=== PATIENT | female | born 1970 | race Caucasian/White ===

== ENCOUNTER → 2018-01-26 | Outpatient (CLI) | payer OTHER | END | disposition home or self-care (01) | LOC: RAH 15:20 | PROVIDERS: ATTEND Obstetrics & Gynecology | DX: Z12.31 Encounter for screening mammogram for malignant neoplasm of breast (principal) | CPT/HCPCS: 77067 ==

== ENCOUNTER 2023-12-02 11:42 | Emergency (ER) | payer OTHER ==
[~2023-12-02] VITALS: Ht 167.6 cm; Wt 81.6 kg
[2023-12-02 12:31] LABS: BASOPHILS # (AUTO) 0.05 K/uL (0.00-0.20); BASOPHILS % (AUTO) 0.7 % (0.0-5.0); EOSINOPHILS # (AUTO) 0.07 K/uL (0.00-0.70); EOSINOPHILS % (AUTO) 0.9 % (0.0-8.0); IMMATURE GRANULOCYTE ABSOLUTE 0.01 K/uL (0-1); LYMPHOCYTES # (AUTO) 2.5 K/uL (1.0-4.8); LYMPHOCYTES % (AUTO) 33.2 % (21.0-51.0); MEAN CORPUSCULAR HEMOGLOBIN 30.8 pg (27.0-33.0); MEAN CORPUSCULAR HGB CONC 34.8 g/dL (32.0-36.0); MEAN CORPUSCULAR VOLUME 88.6 fL (79-99); MONOCYTES # (AUTO) 0.7 K/uL (0.1-1.0); NEUTROPHILS # (AUTO) 4.1 K/uL (1.8-7.7); NEUTROPHILS % (AUTO) 56.1 % (40.0-77.0); PLATELET COUNT (AUTO) 305 K/uL (130-400); RED BLOOD CELL COUNT(AUTO) 4.74 MIL/uL (4.00-5.50); RED CELL DISTRIBUTION WIDTH 12.4 % (11.0-15.5); WHITE BLOOD COUNT (AUTO) 7.4 K/uL (4.8-10.8)
[2023-12-02 12:45] LABS: APPEARANCE,URINE CLEAR (CLEAR); BILIRUBIN,URINE NEGATIVE (NEGATIVE); COLOR,URINE YELLOW (YELLOW); GLUCOSE, URINE (UA) NEGATIVE (NEGATIVE); KETONES,URINE 40 mg/dL (NEGATIVE); LEUKOCYTE ESTERASE ,URINE NEGATIVE Leu/uL (NEGATIVE); NITRATE,URINE NEGATIVE (NEGATIVE); OCCULT BLOOD,URINE NEGATIVE (NEGATIVE); PH,URINE 6.5 (5.0-8.0); PROTEIN,URINE NEGATIVE (NEGATIVE); UROBILINOGEN,URINE 0.2 mg/dL (0.2-1.0)
[2023-12-02 12:47] LABS: ALBUMIN 4.1 g/dL (3.5-5.0); BILIRUBIN,TOTAL 0.5 mg/dL (0.2-1.0); CREATININE 0.7 mg/dL (0.5-1.0); POTASSIUM 3.8 mmol/L (3.5-5.1); TOTAL PROTEIN, SERUM 8.5 g/dL (6.0-8.3)
[2023-12-02 12:48] LABS: ADD UA MICROSCOPIC YES
[2023-12-02 12:55] LABS: BACTERIA,URINE RARE /HPF (None Seen); MUCUS,URINE RARE LPF (None Seen); RBC,URINE 0-1 /HPF (0-1); SQUAMOUS EPITHELIAL CELL,UR FEW /HPF (0-2); WBC,URINE 0-1 /HPF (0-1)
[2023-12-02] MEDS: ONDANSETRON 4MG INJ IVP ONE (13:24)
[2023-12-02] MEDS: KETOROLAC 30MG VIAL (30MG/ML) IVP ONE (13:24)
[2023-12-02 14:11] VITALS: BP 116/62; PULSE 74; RESP 18; O2SAT 95
== END 2023-12-02 15:09 | disposition home or self-care (01) ==
LOC: EDH 11:42
DX: R10.31 Right lower quadrant pain (principal); J45.909 Unspecified asthma, uncomplicated; Z87.442 Personal history of urinary calculi; Z91.041 Radiographic dye allergy status; Z88.2 Allergy status to sulfonamides; Z91.030 Bee allergy status; Z90.711 Acquired absence of uterus with remaining cervical stump; Z90.89 Acquired absence of other organs
CPT/HCPCS: 99285; 74176; 96374; 96375; 80053; 84703; 83690; 85025; 86140; 81001; 36415; J2405; J1885

== ENCOUNTER 2024-07-06 08:09 | Emergency (ER) | payer OTHER ==
[~2024-07-06] VITALS: Ht 167.6 cm; Wt 77.6 kg
--- NOTE | 2024-07-06 08:54 | ERN ---
General Chief Complaint: Wrist Pain/Injury Stated Complaint: RT WRIST PAIN, S/P FALL Time Seen by MD: 08:11 Source: patient History of Present Illness Initial Comments Patient is a 53 y/o femalew here for evaluation of wrist pain. Patient states she fell down early in the morning and is now having right wrist pain. She states her pain is more pronounced on flexion and extension. Allergies: Coded Allergies: Iodinated Contrast Media (Unverified Allergy, Unknown, 12/02/23) Sulfa (Sulfonamide Antibiotics) (Unverified Allergy, Unknown, 12/02/23) bee venom protein (honey bee) (Unverified Allergy, Unknown, 12/02/23) Past Medical History Past Medical History: Asthma, Kidney Stone Past Surgical History: Hysterectomy, Tonsillectomy ROS Dictation CONSTITUTIONAL: No chills, no fever, no weakness, no diaphoresis, no malaise. HEAD/FACE: No signs of trauma. EENT: No eye pain, no blurred vision, no tearing, no double vision, no ear pain, no ear discharge, no nose pain, no nasal congestion, no throat pain, no throat swelling, no mouth pain. RESPIRATORY: No cough, no orthopnea, no SOB, no stridor, no wheezing. CARDIOVASCULAR: No chest pain, no edema, no palpitations, no syncope. GASTROINTESTINAL/ABDOMINAL: No abdominal pain, no constipation, no diarrhea, no nausea, no vomiting. GENITOURINARY: No abnormal discharge, no dysuria, no frequent urination, no hematuria. No complaints of pain in the genitals. MUSCULOSKELETAL: No back pain, no gout, joint pain, joint swelling, muscle pain, no muscle stiffness, no neck pain. INTEGUMENTARY: No change in color, no change in hair/nails, no dryness, no lesion, no lumps, no rash. NEUROLOGICAL/PSYCH: No anxiety, not depressed, no emotional problem, no headache, no numbness, no pre-existing deficit, no history of seizures, no ella mors, no weakness. HEMATOLOGIC/LYMPHATIC: Not anemic, no history of blood clots, no apparent bleeding, no bruising, glands not swollen. All Systems Negative, Except as Noted. Physical Exam Physical Exam Dictation VITAL SIGNS: Reviewed. GENERAL APPEARANCE: Alert, oriented x3, no acute distress, obese. HEAD AND FACE: Non-traumatic. EYES: PERRL, pink conjunctivas, eyelid no trauma, anterior chamber clear. EARS: Pinnas intact and no signs of trauma or erythema. Ear canals clear and no discharge. TMs no erythema. NOSE: No discharge, no bleeding. OROPHARYNX: Mouth normal, teeth no caries, tongue pink. Pharynx clear, no erythema. Tonsils no exudates, no abscesses noted. Mucous membrane moist. NECK: Supple, non-tender, no thyromegaly, no masses, no JVD, no bruits. BREAST: Deferred. CHEST: No tenderness, no crepitus, no paradoxical movement, no retractions. LUNGS: Clear, well-ventilated, symmetric, no rales, no wheezing, no rhonchi, no stridor, good breath sounds bilaterally. HEART: Regular rate, regular rhythm, no murmur, no gallops. VASCULAR: No peripheral edema. ABDOMEN: Soft, positive bowel sounds, nondistended, no guarding, nontender, no rebound, no masses no hepatomegaly, no splenomegaly, no Coelho's sign, no hernias. RECTAL: Deferred. GENITAL: Deferred. NEUROLOGICAL: Normal speech, gross motor function intact, gross sensory function intact. MUSCULOSKELETAL: Neck nontender, full range of motion, back nontender, full range of motion. EXTREMITIES: Nontender, full range of motion. Right wrist swelling, pain on palpation, pain on flexion and extension, SKIN: Color pink, dry, no turgor, no rash, no lacerations, no abrasions, no contusions. LYMPHATICS: Deferred. Results Laboratory and Microbiology Labs Reviewed?: Yes EKG/XRAY/US/CT/MRI X-RAY Comment Right wrist x-ray- distal radial fracture minimally displaced MDM MDM: Differential diagnosis: Right wrist fracture, right wrist dislocation, Patient is a 53-year-old female coming in to be evaluated for right wrist pain. On physical exam there is swelling in the right wrist. X-ray disclose the distal radial fracture minimally displaced. Sugar-tong splint with sling was placed to help with the discomfort. Pulses were checked within normal limits. Advised patient appropriate follow up with PCP and event specialist and in one weak. ED Course Orders Procedure Category Date Status Time Lidocaine Hcl 1% 20ml PHA 07/06/24 Complete Vial (Lidocaine Hc 08:18 Wrist Comp 3+Vws Rt RAD 07/06/24 Taken 08:23 Reverse Sugar Tong TREVA 07/06/24 In Process Splint 09:06 Sling TREVA 07/06/24 In Process 09:06 Naproxen (Naprosyn) PHA 07/06/24 In Process 09:30 Acetaminophen 500mg PHA 07/06/24 In Process Tab (Tylenol 500mg T 09:30 Current Medications Medications (Trade) Dose Ordered Sig/Yossi Route PRN Reason Start Time Stop Time Status Last Admin Dose Admin Acetaminophen (TYLenol 500MG TAB) 500 mg ONCE ONCE PO 07/06/24 09:30 07/06/24 09:31 07/06/24 09:12 Lidocaine HCl (Lidocaine HCl 1% 20ml Vial) 20 ml STK-MED ONCE .ROUTE 07/06/24 08:18 07/06/24 08:18 DC Naproxen (Naprosyn) 500 mg ONCE ONCE PO 07/06/24 09:30 07/06/24 09:31 07/06/24 09:12 Vital Signs Date Time Temp Pulse Resp B/P (MAP) Pulse Ox O2 Delivery O2 Flow Rate FiO2 07/06/24 08:20 98.6 74 16 147/86 100 Room Air* 0 21 07/06/24 08:11 98.6 74 16 147/86 100 Room Air 0 DX & DISP Disposition: Discharge Departure Impression: Primary Impression: Distal radius fracture, right Condition: Stable Additional Instructions: FOLLOW-UP WITH PRIMARY CARE PROVIDER IN 1 TO 2 DAYS. TAKE MEDICATIONS DIRECTED HERE IN THE EMERGENCY ROOM. OKAY TO CONTINUE HOME MEDICATIONS UNLESS OTHERWISE DISCUSSED DURING YOUR VISIT IN THE EMERGENCY ROOM TODAY. RETURN TO YOUR NEAREST EMERGENCY ROOM IF SYMPTOMS WORSEN OR IF THERE IS NO IMPROVEMENT. CALL 911 IF YOU NEED IMMEDIATE ASSISTANCE. TAKE TYLENOL [id number] NEEDED AND IF NO CONTRAINDICATIONS ARE PRESENT. INCREASE ORAL HYDRATION. A WOUND CULTURE OR URINE CULTURE WAS ORDERED HERE IN THE EMERGENCY ROOM DEPARTMENT PLEASE FOLLOW-UP WITH PRIMARY CARE PROVIDER AND ADVISE THEM TO GET REPEAT PORTS FROM OUR FACILITY. IF YOU HAD ANY MERY WRAP/SPLINTS THAT WERE APPLIED HERE, PLEASE DO NOT REMOVE THEM UNTIL YOU SEE YOUR PRIMARY CARE OR SPECIALTY. Referrals: Referrals: RAMON HANSEN MD (PCP) DEYSI MORILLO MD Time of Disposition: 09:21 WOLF ISSA MD Jul 06, 2024 08:54
[2024-07-06] MEDS: acetaMINOPHEN 500 MG TABLET PO ONE (09:12)
[2024-07-06] MEDS: NAPROXEN 500 MG TABLET PO ONE (09:12)
[2024-07-06] MEDS ORDERED: NAPR-1084 PO (09:23)
[2024-07-06] MEDS: LIDOCAINE HCL 1% 20 ML VIAL ONE (09:31)
[2024-07-06 09:40] VITALS: BP 120/87; PULSE 79; RESP 16; TEMP 98.6; O2SAT 100
--- NOTE | 2024-07-06 09:52 | HMCIMG ---
Wrist 3 views- AP, lateral, oblique right History: fall Comparison: none Findings: There are fractures of the distal radius as well as ulnar styloid process both with dorsal angulation. No other fractures are seen. IMPRESSION: Wrist fracture.
== END 2024-07-06 09:57 | disposition home or self-care (01) ==
LOC: EDH 08:09
DX: S52.501A Unspecified fracture of the lower end of right radius, initial encounter for closed fracture (principal); J45.909 Unspecified asthma, uncomplicated; Z88.2 Allergy status to sulfonamides; Z90.710 Acquired absence of both cervix and uterus; Z91.030 Bee allergy status; Z91.041 Radiographic dye allergy status; W18.39XA Other fall on same level, initial encounter; Y93.89 Activity, other specified; Y92.89 Other specified places as the place of occurrence of the external cause; Y99.8 Other external cause status
CPT/HCPCS: 29125; 73110; 99284

== ENCOUNTER 2024-07-12 09:19 | Day surgery (SDC) | payer OTHER ==
[2024-07-11 14:40] LABS: BASOPHILS # (AUTO) 0.04 K/uL (0.00-0.20); BASOPHILS % (AUTO) 0.7 % (0.0-5.0); EOSINOPHILS # (AUTO) 0.14 K/uL (0.00-0.70); EOSINOPHILS % (AUTO) 2.3 % (0.0-8.0); HEMATOCRIT 37.4 % (36-48); IMMATURE GRANULOCYTE ABSOLUTE 0.01 K/uL (0-1); LYMPHOCYTES # (AUTO) 2.6 K/uL (1.0-4.8); LYMPHOCYTES % (AUTO) 41.8 % (21.0-51.0); MEAN CORPUSCULAR HEMOGLOBIN 31.1 pg (27.0-33.0); MEAN CORPUSCULAR HGB CONC 32.9 g/dL (32.0-36.0); MEAN CORPUSCULAR VOLUME 94.7 fL (79-99); MONOCYTES # (AUTO) 0.6 K/uL (0.1-1.0); NEUTROPHILS # (AUTO) 2.8 K/uL (1.8-7.7); PLATELET COUNT (AUTO) 231 K/uL (130-400); RED BLOOD CELL COUNT(AUTO) 3.95 MIL/uL (4.00-5.50); RED CELL DISTRIBUTION WIDTH 12.5 % (11.0-15.5); WHITE BLOOD COUNT (AUTO) 6.1 K/uL (4.8-10.8)
[2024-07-11 14:48] LABS: CREATININE 0.6 mg/dL (0.5-1.0)
[2024-07-11 14:50] LABS: INR 0.97 (0.85-1.15); PROTHROMBIN TIME 10.9 SEC (9.6-11.6)
[2024-07-11 14:51] LABS: PARTIAL THROMBOPLASTIN TIME 24.8 SEC (26.3-35.5)
[2024-07-11 15:06] VITALS: BP 129/76; PULSE 73; RESP 15; TEMP 98.2
[2024-07-12] VITALS (14 sets, daily range): BP systolic 126–157; BP diastolic 57–90; PULSE 83–102; RESP 15–19; TEMP 97.3–97.4
[~2024-07-12] VITALS: Ht 167.6 cm; Wt 80.1 kg
[~2024-07-12 09:19] MED LIST: ACET-2743 PO; AMLO-257 PO; NAPR-1084 PO
--- NOTE | 2024-07-12 09:56 | NUR ---
right wrist with splint in place cr wnl pms present some pain Addendum: 07/12/24 at 0908 by TANGELA LINK RN RN Amended: Links added.
[2024-07-12] MEDS: LACTATED RINGERS 1000ML 1,000 ML IV ONE (10:00)
[2024-07-12] MEDS: ceFAZolin SODIUM 2 GM VIAL ONE (10:00)
[2024-07-12] MEDS ORDERED: MIDAZOLAM HCL 1 MG/ML 2ML VIAL ONE (10:47)
[2024-07-12] MEDS ORDERED: proPOFol 10 MG/ML 20ML VIAL IV ONE (10:47)
[2024-07-12] MEDS ORDERED: ondanSETRON 4MG INJ ONE (10:47)
[2024-07-12] MEDS ORDERED: FENTanyl CITRate PF 50 MCG/1 ML 2ML VIAL ONE ×3 (10:48→14:28)
[2024-07-12] MEDS ORDERED: rocuRONium bROMide 10MG/1ML 5ML VL ONE ×2 (10:48→13:21)
[2024-07-12] MEDS ORDERED: LIDOCAINE 2%-EPI 1:200,000 20 ML VIAL IJ ONE (11:30)
[2024-07-12] MEDS ORDERED: ROPivacaine 0.5% 5MG/ML 30ML ONE (11:30)
[2024-07-12] MEDS ORDERED: dexaMETHasone SOD PHOSPHATE 10MG/ML 1ML VIAL ONE (11:31)
[2024-07-12] MEDS ORDERED: phenylEPHRINE HCL 10 MG/ML 1ML VIAL IV ONE (12:52)
[2024-07-12] MEDS ORDERED: GLYCOPYRROLATE 0.2 MG/ML 5 ML VIAL ONE (14:20)
[2024-07-12] MEDS ORDERED: NEOSTIGMINE METHYLSULFATE 1MG/ML IV ONE (14:21)
[2024-07-12] MEDS ORDERED: ACET-2079 PO (14:30)
--- NOTE | 2024-07-12 14:43 | OP ---
Operative Note: DATE OF PROCEDURE: 07/12/24 SURGEON: MARCO ALDRIDGE MD LAST CODE STRIPER: Mart Gonzalze ANESTHESIA: General and axillary block ANESTHESIOLOGIST/JOURNEYMAN TOOL AND DIE MAKER: Angel Newell CRNA PREOPERATIVE DIAGNOSIS: Right distal radius fracture with two articular fragments POSTOPERATIVE DIAGNOSIS: Right distal radius fracture with two articular fragments PROCEDURE: Open reduction internal fixation right distal radius fracture with two articular fragments. ESTIMATED BLOOD LOSS: 10 cc INDICATIONS: 54-year-old female who sustained a ground level fall when working on her garden injuring her right wrist. Patient was seen in the emergency room and initially placed into a splint. She presented to clinic with 30 of dorsal angulation. We went over the risks, benefits, and alternatives to undergoing operative fixation of the right distal radius fracture and she voluntarily agreed to undergo the aforementioned procedure. DESCRIPTION OF PROCEDURE: Patient was properly identified in the preoperative holding area. Surgical site marking was verified and surgery consent reviewed. The patient was then taken to the operating room and placed in supine position on the OR table. After induction of general anesthesia, preoperative antibiotics were given, all bony prominences were well-padded, and a well padded tourniquet was applied but not inflated at this time. The right upper extremity was then prepped and draped in usual sterile fashion. Surgical timeout was done verifying correct surgery, side, site, and location to be performed. We then began the procedure by exsanguinating the limb using an Esmarch and infl ating her tourniquet 250 mmHg. We made an approximately 9 cm long volar incision overlying the FCR tendon. At this point we performed a standard FCR approach, retracting the FCR and FPL tendons ulnarly so we were able to visualize the pronator quadratus. The pronator quadratus was then incised along its insertion on the radial border and elevated using a wooden handle elevator. We were then able to use a freer elevator to free up our fracture fragment and distract this. We then were able to debride some of the interposed periosteum and soft tissue using a curette. We noted there to be a separate lunate facet fragment. The reduction was then obtained using traction and a provisional styloid K wire was placed to hold this reduction. This was then visualized under AP and lateral fluoroscopic views to ensure we were happy with the reduction wire placement. We then selected our plate, using the [employer] small distal radius plate. This was pinned into place and verified to be in appropriate position under AP and lateral fluoroscopic views. We then placed our slot screw proximally using a 2.4 cortical screw. We ensured under two-view fluoroscopy that the plate was in the appropriate proximal/distal position and adjusted as necessary. At this point we began to drill and fill the distal screws through the variable angle guide placing all locking screws in this portion. We took care to ensure there was no screw prominence. We then removed our provisional fixation K wire and placed our remaining 2.4 screws locking proximally. This point we obtained our final AP and lateral fluoroscopic films insuring we were happy with our hardware placement and fixation of the distal radius fracture as well as the reduction. We then thoroughly irrigated out the wound with normal saline and began to repair the subcutaneous tissue using a 2-0 Vicryl suture. A running subcuticular 3-0 Monocryl stitch was used to close the skin. Dermabond was applied over this. Dressing consisting of Xeroform, 4 x 4's, cast padding, and a volar resting splint were applied. The tourniquet was then deflated. The patient was awakened from anesthesia and taken to the recovery room in stable condition. MARCO ALDRIDGE MD Jul 12, 2024 14:43
--- NOTE | 2024-07-12 14:44 | HMCIMG ---
WRIST COMP 3+VWS RT REASON: ORIF RT distal Radius TECHNIQUE: 6 surgical spot views were obtained. These document operative reduction and internal fixation of comminuted distal radial fracture. Fluoroscopy time was 0.23 minutes. IMPRESSION: 1. ORIF procedure documentation right wrist fracture.
[2024-07-12] MEDS: MEPERIDINE-PF 25 MG/ML SYG ONE (15:02)
[2024-07-12] MEDS: ketOROlac 30MG VIAL (30MG/ML) ONE (15:13)
--- NOTE | 2024-07-12 16:00 | NUR ---
Full and complete Discharge Instructions given to Patient and Family both verbally and in writing.. All questions answered. Voiced understanding to Surgical precautions and Follow Up. Neurovascular status intact. PIV removed with catheter tip intact. Denies c/o pain or discomfort. Sling intact properly. Ambulated to Bathroom where voided large amount. D/C'd W/C to POV with Family to Home.
== END 2024-07-12 16:20 | disposition home or self-care (01) ==
LOC: DAH 09:19
PROVIDERS: ATTEND Student in an Organized Health Care Education/Training Program
DX: S52.571A Other intraarticular fracture of lower end of right radius, initial encounter for closed fracture (principal); S52.614A Nondisplaced fracture of right ulna styloid process, initial encounter for closed fracture; I10 Essential (primary) hypertension; K21.9 Gastro-esophageal reflux disease without esophagitis; Z90.710 Acquired absence of both cervix and uterus; Z79.01 Long term (current) use of anticoagulants; Z82.49 Family history of ischemic heart disease and other diseases of the circulatory system; Z83.3 Family history of diabetes mellitus; Z88.2 Allergy status to sulfonamides; Z91.041 Radiographic dye allergy status; Z79.899 Other long term (current) drug therapy; Z98.890 Other specified postprocedural states; W18.30XA Fall on same level, unspecified, initial encounter; Y93.89 Activity, other specified; Y92.89 Other specified places as the place of occurrence of the external cause; Y99.8 Other external cause status
CPT/HCPCS: 64417; 25608; 25652; 80048; 85025; 85610; 85730; 36415; 73110; A4223 ×2; C1713 ×8; A4663; J7120 ×2; J3010 ×3; J1100; J3490 ×4; J2250; J2704; J2405; J1885; J2710; J2175; J2795; J2371; J0690; A4248; A4649 ×2; A4930; A4215 ×2; A4213; A4222; A4221; A4216

== ENCOUNTER → 2024-08-12 | Outpatient (CLI) | payer OTHER ==
[~2024-08-12] MED LIST changes: +ACET-2079 PO; -ACET-2743 PO
== END | disposition home or self-care (01) ==
LOC: RAH 15:26
PROVIDERS: ATTEND Family Medicine
DX: Z13.6 Encounter for screening for cardiovascular disorders (principal)
CPT/HCPCS: 75571